=== PATIENT | male | born 1965 | race Two or more races ===

== ENCOUNTER 2017-01-04 16:02 | Inpatient (IN) | payer OTHER ==
[~2017-01-04] VITALS: Ht 175.3 cm; Wt 80.3 kg
[~2017-01-04 16:02] MED LIST: CHOL100015 PO; LISI-167 PO; PRED5TAB PO; SIMV40TA3 PO; SIRO0.5T3 PO; SIRO1TAB4 PO
[2017-01-04] MEDS ORDERED: SODIUM CHLORIDE 0.9% 1,000 ML IV ONE ×2 (16:20→18:29)
[2017-01-04] MEDS ORDERED: ACETAMINOPHEN 500 MG TABLET PO ONE (16:30)
[2017-01-04] MEDS ORDERED: SODIUM CHLORIDE 0.9% 1,000ML IVBOLUS ONE (16:30)
[2017-01-04 17:11] LABS: BLOOD UREA NITROGEN 24 mg/dL (7-18)
[2017-01-04] MEDS ORDERED: ACETAMINOPHEN 500 MG TABLET ONE (17:12)
[2017-01-04 17:41] LABS: ANTISTREPTOLYSIN-O TITER 200 IU/mL
[2017-01-04] MEDS ORDERED: AMPICILLIN/SULBACTAM 3 GM in SODIUM CHLORIDE 0.9% 100 ML IV ONE (18:00)
[2017-01-04] MEDS ORDERED: TRAZODONE 50MG TABLET PO PRN (20:30)
[2017-01-04] MEDS ORDERED: BISACODYL 10 MG SUPP PR PRN (20:30)
[2017-01-04] MEDS ORDERED: LABETALOL 5MG/ML, 20ML IVPush PRN (20:30)
[2017-01-04] MEDS ORDERED: POLYETHYLENE GLYCOL 17 GM PACKET PO PRN (20:30)
[2017-01-04] MEDS ORDERED: DOCUSATE 100 MG CAPSULE PO PRN (20:30)
[2017-01-04] MEDS ORDERED: ACETAMINOPHEN 325 MG TABLET PO PRN (20:30)
[2017-01-04] MEDS: SODIUM CHLORIDE 0.9% 1,000 ML IV SCH (21:15)
[2017-01-04] MEDS: SIMVASTATIN 40 MG TABLET PO SCH (21:15)
[2017-01-04] MEDS: HEPARIN 5,000 UNITS/ML, 1ML SQ SCH (21:15)
[2017-01-04 21:24] VITALS: BP 90/54
[2017-01-04] MEDS: PIPERACILLIN/TAZO/PMX 3.375GM 50 ML IV SCH (23:47)
[2017-01-05 03:17] VITALS: BP 111/71
[2017-01-05] MEDS: SODIUM CHLORIDE 0.9% 1,000 ML IV SCH ×4 (03:22→22:12)
[2017-01-05] MEDS: PIPERACILLIN/TAZO/PMX 3.375GM 50 ML IV SCH ×3 (05:44→17:41)
[2017-01-05] MEDS: HEPARIN 5,000 UNITS/ML, 1ML SQ SCH ×3 (05:44→22:00)
[2017-01-05 06:25] VITALS: BP 100/61
[2017-01-05 07:08] LABS: BLOOD UREA NITROGEN 15 mg/dL (7-18)
[2017-01-05 07:09] LABS: ASPARTATE AMINO TRANSFERASE 39 U/L (15-37)
[2017-01-05] MEDS ORDERED: SIROLIMUS 1 MG HOMEMEDPO SCH (09:00)
[2017-01-05] MEDS ORDERED: SIROLIMUS HOMEMEDPO SCH (09:00)
[2017-01-05] MEDS: LISINOPRIL 10 MG TABLET PO SCH (09:00)
[2017-01-05 12:06] VITALS: BP 111/67
[2017-01-05] MEDS ORDERED: KETOROLAC 30 MG/1 ML IVPush PRN (15:30)
[2017-01-05] MEDS ORDERED: CEFTRIAXONE PMX 1GM/50ML 50 ML IV SCH (19:00)
[2017-01-05 19:35] VITALS: BP 110/69
[2017-01-05] MEDS: SIMVASTATIN 40 MG TABLET PO SCH (22:12)
[2017-01-06 01:55] VITALS: BP 99/57
[2017-01-06] MEDS: HEPARIN 5,000 UNITS/ML, 1ML SQ SCH (05:18)
[2017-01-06 05:46] LABS: BLOOD UREA NITROGEN 13 mg/dL (7-18)
[2017-01-06] MEDS: SIROLIMUS 1 MG HOMEMEDPO SCH ×2 (07:00→09:00)
[2017-01-06 08:30] VITALS: BP 110/69
[2017-01-06] MEDS: LISINOPRIL 10 MG TABLET PO SCH (09:00)
[2017-01-06] MEDS ORDERED: AMOX875T PO (10:52)
[2017-01-06] MEDS: SODIUM CHLORIDE 0.9% 1,000 ML IV SCH (11:00)
[2017-01-06 12:39] LABS: ANTISTREPTOLYSIN-O TITER 200 IU/mL
[2017-01-06] MEDS ORDERED: PYRI200T5 PO (15:05)
[2017-01-06] MEDS ORDERED: ISON300T4 PO (15:05)
[2017-01-14] MEDS ORDERED: ERGOCALCIFEROL 50,000 UNIT CAPSULE PO SCH (09:00)
== END 2017-01-06 14:10 | disposition home or self-care (01) | DRG 596 ==
LOC: ED 18:32 → EDIP 18:33 → ED 19:01 → 3NE 20:16
PROVIDERS: ADMIT Internal Medicine; ATTEND Internal Medicine
DX: L52 Erythema nodosum (principal); Z94.0 Kidney transplant status; E87.1 Hypo-osmolality and hyponatremia; E44.1 Mild protein-calorie malnutrition; J02.0 Streptococcal pharyngitis; I10 Essential (primary) hypertension; J84.10 Pulmonary fibrosis, unspecified; E78.5 Hyperlipidemia, unspecified; Z85.72 Personal history of non-Hodgkin lymphomas; Z79.52 Long term (current) use of systemic steroids; Z88.1 Allergy status to other antibiotic agents; Z83.3 Family history of diabetes mellitus; Z79.899 Other long term (current) drug therapy; Z68.26 Body mass index [BMI] 26.0-26.9, adult
CPT/HCPCS: 36415; 71010; 80048; 80053; 82040; 83605; 83735; 84145; 84439; 84443; 85025; 85651; 86060; 86063; 86215; 86480; 86635; 87040; 87150; 96361; 96365; J0295; J0696; J1644; J2543; J7030; J7512

== ENCOUNTER → 2018-10-01 | Outpatient (CLI) | payer MEDICARE, OTHER ==
[~2018-10-01] MED LIST changes: +AMOX875T PO; +ISON300T10 PO; +PYRI200T5 PO
== END | disposition home or self-care (01) ==
LOC: CFH 10:55
PROVIDERS: ATTEND Internal Medicine Nephrology
DX: R31.9 Hematuria, unspecified (principal); N18.2 Chronic kidney disease, stage 2 (mild); Z94.0 Kidney transplant status
CPT/HCPCS: 76770